=== PATIENT | female | born 1985 | race Caucasian/White ===

== ENCOUNTER 2022-04-08 20:19 | Emergency (ER) | payer OTHER ==
[2022-04-08 20:26] VITALS: BP 118/69; PULSE 88; RESP 19; TEMP 98.2; BMI 28.6
== END 2022-04-08 21:15 | disposition home or self-care (01) ==
LOC: JER 20:19
DX: R05.9 Cough, unspecified (principal); R50.9 Fever, unspecified; Z11.52 Encounter for screening for COVID-19
CPT/HCPCS: 0241U-QW; 99283-25

== ENCOUNTER 2022-11-22 18:02 | Emergency (ER) | payer OTHER ==
[2022-11-22 18:10] VITALS: BP 111/69; PULSE 77; RESP 18; TEMP 98; BMI 25.0
== END 2022-11-22 20:15 | disposition home or self-care (01) ==
LOC: JERFT 18:02 → JER 18:02 → JERFT 20:15
DX: M79.671 Pain in right foot (principal); S93.491A Sprain of other ligament of right ankle, initial encounter; M25.571 Pain in right ankle and joints of right foot; X50.1XXA Overexertion from prolonged static or awkward postures, initial encounter; Y93.01 Activity, walking, marching and hiking
CPT/HCPCS: 73610-TC-RT-FY; 73630-TC-RT-FY; 99283-25